=== PATIENT | male | born 1975 | race African-American/Black ===

== ENCOUNTER 2020-02-29 08:44 | Observation (INO) | payer SELFPAY ==
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
[2020-02-29 09:14] LABS: #Basophils 0.1 thou/uL (0.0-0.2); #Lymphocytes 2.1 thou/uL (1.20-3.40); #Monocytes 0.5 thou/uL (0.11-0.59); #Neutrophils 3.4 thou/uL (1.40-6.50); %Eosinophils 0.5 % (0.0-10.0); %Lymphocytes 34.6 % (21.0-51.0); %Monocytes 7.4 % (0.0-10.0); %Neutrophils 56.5 % (42.0-75.0); Hemoglobin 15.4 g/dL (14.0-18.0); Mean Corpuscular HGB CONC 33.1 g/dL (32.0-36.0); Mean Corpuscular Hemoglobin 29.2 pg (27.0-31.0); Mean Corpuscular Volume 88.2 fL (78.0-98.0); Mean Platelet Volume 7.2 fL (7.4-10.4); Platelet Count 239 thou/uL (130-400); RBC Distribution Width 12.2 % (11.5-14.5); Red Blood Cell (RBC) Count 5.28 mill/uL (4.70-6.10); White Blood Cell (WBC) Count 6.1 thou/uL (4.8-10.8)
[2020-02-29] MEDS ORDERED: Fentanyl 100 MCG/2 ML VIAL ONE ×4 (09:15→14:34)
[2020-02-29] MEDS ORDERED: Ondansetron PF 4 MG/2 ML Vial ONE ×2 (09:15→09:18)
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
[2020-02-29] MEDS ORDERED: PROPOFOL 200 MG/20 ML VIAL ONE (09:18)
[2020-02-29] MEDS ORDERED: Dexamethasone 20 MG/5 ML VIAL ONE (09:18)
[2020-02-29] MEDS ORDERED: Lidocaine 1% PF 5 ML VIAL ONE (09:18)
[2020-02-29] MEDS ORDERED: Ketorolac Tromethamine 30 MG/ML VIAL ONE (09:18)
[2020-02-29] MEDS ORDERED: Succinylcholine Chloride 20 MG/ML 10 ml SYRINGE FS ONE (09:18)
[2020-02-29] MEDS ORDERED: Rocuronium Bromide 10 MG/ML (10ML VIAL) ONE (09:18)
[2020-02-29] MEDS ORDERED: Glycopyrrolate 0.2 MG/ML 5 ML SYRINGE ONE (09:18)
[2020-02-29 09:25] LABS: ALT (SGPT) 16 U/L (8-55); AST (SGOT) 17 U/L (5-34); Albumin 4.1 g/dL (3.5-5.0); Alcohol Less than 10 mg/dL (Less than 10); Alkaline Phosphatase 77 U/L (40-110); Anion Gap 10 mmol/L (10-20); BUN (Urea Nitrogen) 22 mg/dL (8.9-20.6); Bilirubin, Total 0.4 mg/dL (0.2-1.2); Calc. Creatinine Clearance 0 mL/min (70-130); Carbon Dioxide 29 mmol/L (22-29); Chloride 106 mmol/L (98-107); Estimated GFR-MDRD 65; Globulin 3.1 g/dL (2.4-3.5); Glucose 110 mg/dL (70-105); Potassium 3.9 mmol/L (3.5-5.1); Protein, Total 7.2 g/dL (6.0-8.3); Sodium 141 mmol/L (136-145)
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
[2020-02-29 10:31] LABS: Amphetamine Not Detected (NotDetected); Barbiturates Screen Not Detected (NotDetected); Benzodiazepine Screen Not Detected (NotDetected); Cocaine Metabolite Screen Not Detected (NotDetected); Medtox Control Line Valid? VALID (VALID); Medtox Reader # READER 1; Methadone Not Detected (NotDetected); Methamphetamine Not Detected (NotDetected); Opiate Screen Not Detected (NotDetected); Oxycodone Screen Not Detected (NotDetected); Phencyclidine (PCP) Not Detected (NotDetected); THC/Cannabinoid Screen Not Detected (NotDetected); Tricyclic Screen Not Detected (NotDetected)
[2020-02-29] MEDS ORDERED: Lidocaine 2% Jelly 5 ML TUBE ONE (11:50)
[2020-02-29] MEDS ORDERED: Promethazine HCl 25 MG/ML VIAL ONE (14:37)
[2020-02-29] MEDS ORDERED: Iopamidol-370 76% 500 ML 1 ML ONE (16:27)
[2020-02-29] MEDS ORDERED: Dextrose 5% in Water 1,000 ML IV PRN (17:45)
[2020-02-29] MEDS ORDERED: Promethazine HCl 25 MG/ML VIAL IVPB PRN (17:45)
[2020-02-29] MEDS ORDERED: Dextrose 50% Abboject 50 ML SYRINGE SLOW IVP PRN (17:45)
[2020-02-29] MEDS ORDERED: hydrALAZINE 20 MG/ML VIAL SLOW IVP PRN (17:45)
[2020-02-29] MEDS ORDERED: Sodium Chloride 0.9% 1,000 ML IV SCH (17:45)
[2020-02-29] MEDS ORDERED: Ondansetron PF 4 MG/2 ML Vial IVP PRN (17:45)
[2020-02-29] MEDS ORDERED: traMADol HCl 50 MG TAB PO PRN ×2 (17:48)
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
[2020-02-29] MEDS ORDERED: Acetaminophen 500 MG TAB PO SCH (19:15)
[2020-02-29] MEDS ORDERED: Morphine 2 MG/ML VIAL SLOW IVP PRN (19:16)
[2020-02-29] MEDS ORDERED: Acetaminophen/Codeine 30-300mg Tablet PO PRN (19:17)
[2020-02-29] MEDS: Senokot S 8.6-50 MG TAB PO SCH (19:58)
[2020-02-29] MEDS: Amoxicillin/Potassium Clav 875 MG TAB PO SCH (19:58)
[2020-02-29] MEDS: Famotidine 20 MG TAB PO SCH (19:59)
[2020-02-29] MEDS: Ibuprofen 600 MG TAB PO SCH (21:11)
[2020-02-29 21:54] VITALS: BMI 29.0
--- NOTE | 2020-02-29 23:30 | PRG ---
DATE OF SERVICE: 02/29/2020 SUBJECTIVE: The patient was seen during evening rounds, resting comfortably, in no acute distress. The patient continues to tolerate a regular diet according to his nurse and the pain has been controlled. OBJECTIVE: VITAL SIGNS: Stable, afebrile. GENERAL: Middle-aged male, sleeping comfortably, in no acute distress. RESPIRATORY: Equal chest rise and fall, respirations even, not labored. ASSESSMENT AND PLAN: Continue supportive care. Pain regimen. Speech Therapy to evaluate and treat tomorrow. Continue physical and occupational therapy. Pending placement to a traumatic brain injury rehab. Job ID: [id number]
[2020-03-01] MEDS: Acetaminophen 500 MG TAB PO SCH ×2 (00:11→05:24)
[2020-03-01] MEDS: Ibuprofen 600 MG TAB PO SCH (05:24)
[2020-03-01 06:12] LABS: Hemoglobin 14.7 g/dL (14.0-18.0); Mean Corpuscular HGB CONC 33.1 g/dL (32.0-36.0); Mean Corpuscular Hemoglobin 29.6 pg (27.0-31.0); Mean Corpuscular Volume 89.4 fL (78.0-98.0); Mean Platelet Volume 6.9 fL (7.4-10.4); Platelet Count 229 thou/uL (130-400); RBC Distribution Width 12.3 % (11.5-14.5); Red Blood Cell (RBC) Count 4.96 mill/uL (4.70-6.10); White Blood Cell (WBC) Count 12.6 thou/uL (4.8-10.8)
[2020-03-01 06:29] LABS: Anion Gap 12 mmol/L (10-20); BUN (Urea Nitrogen) 17 mg/dL (8.9-20.6); Calc. Creatinine Clearance 101 mL/min (70-130); Calcium 8.3 mg/dL (7.8-10.44); Carbon Dioxide 24 mmol/L (22-29); Chloride 106 mmol/L (98-107); Estimated GFR-MDRD 87; Glucose 102 mg/dL (70-105); Magnesium 1.8 mg/dL (1.6-2.6); Potassium 3.9 mmol/L (3.5-5.1); Sodium 138 mmol/L (136-145)
[2020-03-01] MEDS ORDERED: Polyethylene Glycol 3350 17 GM Packet PO SCH (09:00)
[2020-03-01] MEDS: Famotidine 20 MG TAB PO SCH (09:04)
[2020-03-01] MEDS: Amoxicillin/Potassium Clav 875 MG TAB PO SCH (09:04)
[2020-03-01] MEDS: Senokot S 8.6-50 MG TAB PO SCH (09:07)
[2020-03-01 14:03] VITALS: BP 111/62; TEMP 97.5
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
--- NOTE | 2020-03-07 05:54 | PQF ---
[facility] POST DISCHARGE CLINICAL DOCUMENTATION IMPROVEMENT CLARIFICATION FORM l Todays Date: 03/06/20 l Patients Name MARQUIS mavis VIZCARRA l l Admit Date 02/29/20 l Disch Date 02/29/20 Nursing Care Attendant Name Keiko Rivera Email: [email or web address] Cell: [phone] To be completed by Nursing Care Attendant: Present Clinical Indicators - Signs / Symptoms Results and Location in Medical Record [ ] Documentation of: [ ] [ ] Documentation of: [ ] [ ] Documentation of: [ ] [ ] Documentation of: [ ] [ ] Risks [ ] [ ] [ ] Treatment [ ] Left arm laceration with laceration of underlying muscle belly. Query for length of repair of the laceration (cm) [ ] [ ] To be completed by Physician: [place] KESSLER The documentation in this patients record requires clarification to ensure coding compliance and accuracy. Check the appropriate box and include in your discharge summary. [ ] ___8 cm [ ] [ ] [ ] Please check this box if this does not apply to this patient [ ] Unable to determine [ ] Other diagnosis: Review the following information and exercise your independent professional judgment in responding to the clarification. Based upon the clinical findings, risk factors, and treatment, please clarify if you are treating one of the above probable or suspected diagnoses. Physician Signature: Date Time MTDD
== END 2020-03-01 14:25 | disposition home or self-care (01) ==
LOC: ERS 08:44 → SURG A 11:16
PROVIDERS: ADMIT Orthopaedic Surgery; ATTEND Orthopaedic Surgery
PROC: 0KQB0ZZ Repair Left Lower Arm and Wrist Muscle, Open Approach (ICD-10-PCS; principal; 2020-02-29)
DX: S56.522A Laceration of other extensor muscle, fascia and tendon at forearm level, left arm, initial encounter (principal); S51.822A Laceration with foreign body of left forearm, initial encounter; S06.0X0A Concussion without loss of consciousness, initial encounter; V67.5XXA Driver of heavy transport vehicle injured in collision with fixed or stationary object in traffic accident, initial encounter; Y92.411 Interstate highway as the place of occurrence of the external cause; Y99.0 Civilian activity done for income or pay
CPT/HCPCS: 36415; 36416; 70450; 71260; 72125; 74177; 80048; 80053; 80306; 80307; 83735; 84100; 85025; 85027; 93005; 96361; 96365; 96375; G0378; G0390; J0690; J1100; J1885; J2405; J2550; J2704; J3010; Q9967